=== PATIENT | male | born 1985 ===

== ENCOUNTER 2017-03-18 18:09 | Emergency (ER) | payer OTHER ==
--- NOTE | 2017-03-18 19:25 | ED PDOC ---
HPI: Abdomen Time Seen by Provider: 03/18/17 18:58 Chief Complaint (Nursing): Abdominal Pain Chief Complaint (Provider): Abdominal Pain History Per: Patient History/Exam Limitations: no limitations Onset/Duration Of Symptoms: Days (x1) Additional Complaint(s): Victor Hugo Roa, 31 year old male with a past medical history inclusive of Asthma , presents to the ED for right lower quadrant pain occurring with a sudden onset around 17:00 yesterday while at rest. The patient states the pain has waxed and waned since onset, but generally seems to be getting worse, radiating to his back. He reports seeing a small particle in his urine earlier today and experiences nausea, decreased appetite, and urinary frequency. He denies vomiting, diarrhea, constipation, hematuria, dysuria, or any testicular pain. PMD: Luis Naik MD Past Medical History Reviewed: Historical Data, Nursing Documentation, Vital Signs Vital Signs: Last Vital Signs Temp 97.9 F 03/18/17 18:21 Pulse 90 03/18/17 18:21 Resp 18 03/18/17 18:21 BP 160/90 H 03/18/17 18:21 Pulse Ox 99 03/18/17 19:33 - Medical History PMH: Asthma - Surgical History Surgical History: No Surg Hx - Family History Family History: States: Hypertension - Social History Current smoker - smoking cessation education provided: No Ex-Smoker (has not smoked in the last 12 months): No Alcohol: None - Home Medications Home Medications: Ambulatory Orders Medication Instructions Recorded Ibuprofen [Motrin Tab] 600 mg PO Q8 PRN #60 tab 03/18/17 traMADol [Ultram] 50 mg PO TID PRN #15 tab 03/18/17 - Allergies Allergies/Adverse Reactions: Allergies Allergy/AdvReac Type Severity Reaction Status Date / Time azithromycin Allergy RASH Verified 03/18/17 18:21 Review of Systems ROS Statement: Except As Marked, All Systems Reviewed And Found Negative Constitutional: Positive for: Other (decreased appetite ) Gastrointestinal: Positive for: Nausea, Abdominal Pain (right lower quadrant pain radiating to back ). Negative for: Vomiting, Diarrhea, Constipation Genitourinary Male: Positive for: Frequency. Negative for: Dysuria, Hematuria, Other (no testicular pain) Musculoskeletal: Positive for: Back Pain Physical Exam - Reviewed Nursing Documentation Reviewed: Yes Vital Signs Reviewed: Yes - Physical Exam Appears: Positive for: Non-toxic, In Acute Distress (in moderate painful distress) Head Exam: Positive for: ATRAUMATIC, NORMAL INSPECTION, NORMOCEPHALIC Skin: Positive for: Normal Color, Warm, Dry Eye Exam: Positive for: EOMI, Normal appearance, PERRL ENT: Positive for: Normal ENT Inspection Neck: Positive for: Normal, Painless ROM, Supple Cardiovascular/Chest: Positive for: Regular Rate, Rhythm. Negative for: Murmur Respiratory: Positive for: Normal Breath Sounds. Negative for: Wheezing, Respiratory Distress Gastrointestinal/Abdominal: Positive for: Soft, Tenderness (TTP right lower quadrant; Positive McBurney's Point Tenderness), Other (morbidly obese; negative psoas sign ). Negative for: Mass, Distended, Guarding, Rebound Back: Positive for: Normal Inspection. Negative for: L CVA Tenderness, R CVA Tenderness Extremity: Positive for: Normal ROM. Negative for: Deformity, Swelling Lymphatic: Negative for: Adenopathy Neurologic/Psych: Positive for: Alert, Oriented. Negative for: Motor/Sensory Deficits - Laboratory Results Result Diagrams: 03/18/17 19:30 03/18/17 19:30 - ECG O2 Sat by Pulse Oximetry: 99 (RA) Pulse Ox Interpretation: Normal Medical Decision Making Medical Decision Making: Impression: Right lower quadrant pain Differential diagnosis includes but is not limited to: Appendicitis, Renal polyps, herna, muscle strain Plan: * CT Abd & Pelvis IV Contrast Only Stat * IV Insertion (Saline Lock) Stat * Morphine 4 mg IVP Stat * Sodium Chloride 0.9% 1,000 ml IV 1,000 mls/hr * Zofran Inj 8 mg IV Stat Accession No. 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 no. Patient Name: VICTOR HUGO ROA Pt. Address: [address] [place] [address]. Rec #: [id number] [place] [address]: Osmar SNIDER, Abigail Fernandez Pt Order Location: [facility] : 1985 Male Age: 31 Order #: [id number] Reason for exam: RLQ pain and RIGHT flank pain appy v stone CT Scan ABD PELVIS IV CONTRAST ONLY Exam Date: 03/18/17 This imaging exam was performed at [facility] EXAM: CT Abdomen and Pelvis With Intravenous Contrast CLINICAL HISTORY: 31 years old, male; Pain; Abdominal pain; Localized; Right lower quadrant (rlq); Prior surgery; Surgery date: 6+ months; Surgery type: Vasectomy; Additional info: Rlq pain and right flank pain appy v stone TECHNIQUE: Axial computed tomography images of the abdomen and pelvis with intravenous contrast. This CT exam was performed using one or more of the following dose reduction techniques: automated exposure control, adjustment of the mA and/or kV according to patient size, and/or use of iterative reconstruction technique. Coronal and sagittal reformatted images were created and reviewed. CONTRAST: 100 mL of [id number] administered intravenously. EXAM DATE/TIME: 03/18/2017 7:06 PM COMPARISON: There are no prior studies for comparison. FINDINGS: Lower thorax: Heart size is normal. Lung bases are clear ABDOMEN: Liver: There is fatty infiltration of the liver. Gallbladder and bile ducts: unremarkable Pancreas: Pancreas is mildly atrophic. Spleen: unremarkable Adrenals: unremarkable Kidneys and ureters: There is a low attenuation right renal lesion too small to characterize.Kidneys and ureters are otherwise unremarkable. Stomach and bowel: Stomach is partially distended. Rotation is normal. There is no obstruction. Terminal ileum is unremarkable. Appendix is unremarkable. Colon is incompletely distended which limits evaluation. Appendix: See above. PELVIS: Bladder: unremarkable Reproductive: Seminal vesicles and prostate are unremarkable. ABDOMEN and PELVIS: Intraperitoneal space: There is no free air or free fluid. Bones/joints: There are no acute osseous abnormalities. There is sclerosis at the left sacroiliac joint. Soft tissues: There is a small fat containing umbilical hernia. Vasculature: Vascular structures are unremarkable. Lymph nodes: There is no pathologic adenopathy. IMPRESSION: No renal or ureteral stones or hydronephrosis; no CT findings of appendicitis Additional findings as described above. Dictated By: Camryn Ngo MD, MD Dictated Date/Time: 03/18/172210 Signed By: Camryn Ngo MD Date Signed: 2210 Transcribed By: DESIRE Transcribe Date/Time : 03/18/172210 BETH/HELEN Scribe Attestation: Documented by Susanna Rapp, acting as a scribe for Abigail Prasad MD. Provider Scribe Attestation: All medical record entries made by the Scribe were at my direction and personally dictated by me. I have reviewed the chart and agree that the record accurately reflects my personal performance of the history, physical exam, medical decision making, and the department course for this patient. I have also personally directed, reviewed, and agree with the discharge instructions and disposition. Disposition - Clinical Impression Clinical Impression: Abdominal pain Counseled Patient/Family Regarding: Studies Performed, Diagnosis, Need For Followup, Rx Given - Disposition Referrals: Luis Naik MD [Non-Staff] - (PLEASE FOLLOW UP WITH DR NAIK IN 2-3 DAYS TO SEE HOW YOU ARE DOING) Disposition: Routine/Home Disposition Time: 22:00 Condition: STABLE Prescriptions: Ibuprofen [Motrin Tab] 600 mg PO Q8 PRN #60 tab PRN Reason: Pain, Moderate (4-7) traMADol [Ultram] 50 mg PO TID PRN #15 tab PRN Reason: SEVERE PAIN ONLY Instructions: Acute Abdominal Pain (ED), Groin Strain (ED), Muscle Strain (ED) Forms: [facility] ED School/Work Excuse
[2017-03-18 19:55] LABS: BASO % 0.3 % (0.0-2.0); EOS # 0.1 K/uL (0.0-0.7); EOS % 0.8 % (0.0-4.0); HEMOGLOBIN 14.2 g/dL (12.0-18.0); MEAN CELL VOLUME 86.7 fl (80.0-94.0); MEAN CORPUSCULAR HEMOGLOBIN 28.5 pg (27.0-31.0); MEAN CORPUSCULAR HGB CONC 32.9 g/dL (33.0-37.0); MEAN PLATELET VOLUME 9.9 fl (7.2-11.7); MONO # 0.8 K/uL (0.0-0.8); MONO % 6.2 % (0.0-10.0); NEUT # 10.3 K/uL (1.8-7.0); NEUT % 77.7 % (50.0-75.0); NRBC % 0.1 % (0.0-0.0); RBC 4.97 Mil/uL (4.40-5.90); RED CELL DISTRIBUTION WIDTH 13.7 % (11.5-14.5); WHITE BLOOD COUNT 13.2 K/uL (4.8-10.8)
[2017-03-18] MEDS: Sodium Chloride 0.9% 1,000 ML IV STA (19:55)
[2017-03-18 20:05] LABS: ALB/GLOB RATIO 1.2 (1.0-2.1); ALBUMIN 4.6 g/dL (3.5-5.0); ALT/SGPT 55 U/L (21-72); AST/SGOT 35 U/L (17-59); BLOOD UREA NITROGEN 10 mg/dl (9-20); GFR AFRICAN-AMERICAN > 60; GFR NON-AFRICAN AMERICAN > 60
[2017-03-18 20:09] LABS: SQUAMOUS EPITHIAL 2 /hpf (0-5); URINE AMORPHOUS SEDIMENT RARE /ul (<OCC); URINE BILIRUBIN NEGATIVE (NEGATIVE); URINE BLOOD SMALL (NEGATIVE); URINE CLARITY CLEAR (Clear); URINE COLOR YELLOW (YELLOW); URINE GLUCOSE (UA) NEG (Normal); URINE LEUKOCYTE ESTERASE NEG Leu/uL (Negative); URINE NITRATE NEGATIVE (NEGATIVE); URINE PROTEIN NEGATIVE (NEGATIVE); URINE UROBILINOGEN 0.2-1.0 mg/dL (0.2-1.0)
[2017-03-18 20:30] LABS: INR 1.1 (0.9-1.2); PARTIAL THROMBOPLASTIN TIME 40.1 Seconds (25.6-37.1); PROTHROMBIN TIME 11.9 Seconds (9.8-13.1)
[2017-03-18] MEDS ORDERED: Iohexol 300 100 ML IJ ONE (20:57)
[2017-03-18] MEDS ORDERED: Sodium Chloride 0.9% 50 ML IV ONE (20:57)
--- NOTE | 2017-03-18 22:11 | CT ---
EXAM: CT Abdomen and Pelvis With Intravenous Contrast CLINICAL HISTORY: 31 years old, male; Pain; Abdominal pain; Localized; Right lower quadrant (rlq); Prior surgery; Surgery date: 6+ months; Surgery type: Vasectomy; Additional info: Rlq pain and right flank pain appy v stone TECHNIQUE: Axial computed tomography images of the abdomen and pelvis with intravenous contrast. This CT exam was performed using one or more of the following dose reduction techniques: automated exposure control, adjustment of the mA and/or kV according to patient size, and/or use of iterative reconstruction technique. Coronal and sagittal reformatted images were created and reviewed. CONTRAST: 100 mL of [id number] administered intravenously. EXAM DATE/TIME: 03/18/2017 7:06 PM COMPARISON: There are no prior studies for comparison. FINDINGS: Lower thorax: Heart size is normal. Lung bases are clear ABDOMEN: Liver: There is fatty infiltration of the liver. Gallbladder and bile ducts: unremarkable Pancreas: Pancreas is mildly atrophic. Spleen: unremarkable Adrenals: unremarkable Kidneys and ureters: There is a low attenuation right renal lesion too small to characterize.Kidneys and ureters are otherwise unremarkable. Stomach and bowel: Stomach is partially distended. Rotation is normal. There is no obstruction. Terminal ileum is unremarkable. Appendix is unremarkable. Colon is incompletely distended which limits evaluation. Appendix: See above. PELVIS: Bladder: unremarkable Reproductive: Seminal vesicles and prostate are unremarkable. ABDOMEN and PELVIS: Intraperitoneal space: There is no free air or free fluid. Bones/joints: There are no acute osseous abnormalities. There is sclerosis at the left sacroiliac joint. Soft tissues: There is a small fat containing umbilical hernia. Vasculature: Vascular structures are unremarkable. Lymph nodes: There is no pathologic adenopathy. IMPRESSION: No renal or ureteral stones or hydronephrosis; no CT findings of appendicitis Additional findings as described above.
[2017-03-18 23:02] VITALS: BP 155/101; PULSE 84; RESP 16; TEMP 98
[2017-03-18 23:22] VITALS: O2SAT 99
== END 2017-03-18 23:05 | disposition home or self-care (01) ==
LOC: H.ER 18:09
DX: R10.31 Right lower quadrant pain (principal); J45.909 Unspecified asthma, uncomplicated

== ENCOUNTER 2018-03-11 16:22 | Emergency (ER) | payer OTHER ==
--- NOTE | 2018-03-11 17:14 | ED PDOC ---
Lower Extremity Pain/Injury Time Seen by Provider: 03/11/18 16:41 Chief Complaint (Nursing): Lower Extremity Problem/Injury Chief Complaint (Provider): Left Ankle Injury History Per: Patient History/Exam Limitations: no limitations Onset/Duration Of Symptoms: Mins (prior to arrival) Current Symptoms Are (Timing): Still Present Additional Complaint(s): 32 year old male presents to the ED s/p tripping on an uneven sidewalk and sustaining an abrasion to his inner left ankle prior to arrival. Patient states he was playing with his daughter, and he tripped with his right ankle, but to compensate, he ended up twisting his left ankle. He reports not taking any medications prior to arrival. PMD: Luis Toth Past Medical History Reviewed: Historical Data, Nursing Documentation, Vital Signs Vital Signs: Last Vital Signs Temp 97.8 F 03/11/18 16:39 Pulse 96 H 03/11/18 16:39 Resp 16 03/11/18 16:39 BP 133/76 03/11/18 16:39 Pulse Ox 98 03/11/18 16:39 - Medical History PMH: Asthma - Surgical History Other surgeries: vasectomy - Family History Family History: States: Hypertension - Social History Current smoker - smoking cessation education provided: No Alcohol: Social Drugs: Other - Home Medications Home Medications: Ambulatory Orders Medication Instructions Recorded Ibuprofen [Motrin Tab] 600 mg PO Q8 PRN #60 tab 03/18/17 traMADol [Ultram] 50 mg PO TID PRN #15 tab 03/18/17 Ibuprofen [Motrin Tab] 600 mg PO Q8 PRN #30 tab 03/11/18 traMADol [Ultram] 50 mg PO TID PRN #15 tab 03/11/18 - Allergies Allergies/Adverse Reactions: Allergies Allergy/AdvReac Type Severity Reaction Status Date / Time erythromycin base Allergy RASH Verified 03/11/18 16:39 Review of Systems ROS Statement: Except As Marked, All Systems Reviewed And Found Negative Musculoskeletal: Positive for: Foot Pain (left ankle, with abrasion on inner ankle) Physical Exam - Reviewed Nursing Documentation Reviewed: Yes Vital Signs Reviewed: Yes - Physical Exam Appears: Positive for: No Acute Distress Head Exam: Positive for: ATRAUMATIC, NORMOCEPHALIC Skin: Positive for: Normal Color, Warm, Dry Neck: Positive for: Normal Cardiovascular/Chest: Negative for: Bradycardia, Tachycardia Respiratory: Negative for: Accessory Muscle Use, Respiratory Distress Pulses-Dorsalis Pedis (L): 2+ Pulses-Dorsalis Pedis (R): 2+ Extremity: Positive for: Tenderness (to left medial malleolus with abrasion), Swelling (to left ankle). Negative for: Normal ROM (Decreased ROM however pt able to dorsi flex and plantarflex ), Deformity (no gross bony deformity) Neurologic/Psych: Positive for: Alert, Oriented (x3). Negative for: Motor/ Sensory Deficits - ECG O2 Sat by Pulse Oximetry: 98 (RA) Pulse Ox Interpretation: Normal Medical Decision Making Medical Decision Making: Initial Impression: left ankle pain Time: 16:44 Initial Plan: --Ultram 50 mg PO --Ice pack --Left ankle XR --Left foot XR 17:33 Ankle XR Findings: Tibiotalar separation clearly identified on this radiograph. There is separation of the tibia-fibular joint space. There is widening of the medial and lateral clear spaces. Soft tissue swelling in the ankle. Impression: Disruption of the ankle syndesmotic joint with widening of the medial and lateral clear spaces. 17:33 Foot XR FINDINGS: BONES: Normal. No fracture. JOINTS: Normal. SOFT TISSUES: Normal. OTHER FINDINGS: None. IMPRESSION: No fracture. Podiatry was consulted and a resident came into the ED to evaluate pt. Tibia Fibula XR was recommended of left leg and also XRs of right foot and ankle. 1850 - Podiatry would like to do a closed reduction. Pt moved to room 19 and remainder of care by Dr. Prasad. Scribe Attestation Documented by Marleny Esquivel acting as a scribe for Dorcas Segura PA-C. Provider Attestation All medical record entries made by the Scribe were at my direction and personally dictated by me. I have reviewed the chart and agree that the record accurately reflects my personal performance of the history, physical exam, medical decision making, and the department course for this patient. I have also personally directed, reviewed, and agree with the discharge instructions and disposition. Disposition - Clinical Impression Clinical Impression: Ankle injury - Patient ED Disposition Is Patient to be Admitted: No - Disposition Disposition: Transfer of Care Disposition Time: 18:15 Condition: STABLE Instructions: Moderate Sedation in Adults (DC) Forms: [facility] (Setswana)
--- NOTE | 2018-03-11 17:46 | RAD ---
PROCEDURE: Left Foot Radiographs. HISTORY: pain after trip and fall COMPARISON: None. FINDINGS: BONES: Normal. No fracture. JOINTS: Normal. SOFT TISSUES: Normal. OTHER FINDINGS: None. IMPRESSION: No fracture.
--- NOTE | 2018-03-11 17:51 | RAD ---
Left ankle History: Trip and fall. Comparison: None. Technique: Three views the left ankle. Findings: Tibiotalar separation clearly identified on this radiograph. There is separation of the tibia-fibular joint space. There is widening of the medial and lateral clear spaces. Soft tissue swelling in the ankle. Impression: Disruption of the ankle syndesmotic joint with widening of the medial and lateral clear spaces. Discussed with JOSSELYN Segura at approximately 5:48 p.m. on 03/11/2018.
[2018-03-11] MEDS ORDERED: Propofol 10 mg/ml Inj (20 ML) IV ONE (18:32)
[2018-03-11] MEDS ORDERED: Propofol 10 mg/ml 1,000 MG/100 ML VIAL ONE (18:34)
[2018-03-11] MEDS ORDERED: Morphine 4 MG/ML VIAL ONE (19:11)
--- NOTE | 2018-03-11 20:18 | CP.PCM.CON ---
History of Present Illness - History of Present Illness History of Present Illness: Podiatry consult note for attending, Dr. Lee 32 y/o male with PMHx of Asthma presented to the ED due to complaints of left ankle pain. Patient states he was playing with his daughter on the pavement when he twisted his left ankle. Patient states he heard a "pop". Patient reports it occurred 2 hours prior to his ED arrival. Patient complains of pain, which is worsened with ambulation and movement. Patient denies numbness or tingling. Patient also reports some pain to the right foot. Patient denies F/V/N /SOB/chills. PMHx: Asthma PSHx: Vasectomy Allergies: Erythromycin, peaches, strawberries, grass, pollen Review of Systems - Review of Systems All systems: reviewed and no additional remarkable complaints except Review of Systems: As per HPI Past Patient History - Past Social History Alcohol: Social Drugs: Other - PULMONARY Hx Asthma: Yes - PSYCHIATRIC Hx Substance Use: Yes - SURGICAL HISTORY Hx Surgeries: Yes Other/Comment: vasectomy - ANESTHESIA Hx Anesthesia: Yes Hx Anesthesia Reactions: No Meds Allergies/Adverse Reactions: Allergies Allergy/AdvReac Type Severity Reaction Status Date / Time erythromycin base Allergy RASH Verified 03/11/18 16:39 Physical Exam - Head Exam Head Exam: ATRAUMATIC, NORMOCEPHALIC - Extremities Exam Additional comments: Bilateral Lower Extremity Exam VASC: DP and PT 2/4 bilaterally, CFT less than 3 seconds X 10, TG warm to cool proximal to distal, non-pitting edema noted to the left lateral ankle NEURO: Epicritic and Protective sensations intact, patient able to wiggle toes DERM: Left- swelling with minimal ecchymosis noted to the left ankle, no open wounds, no clinical signs of infection MSK: Left- patient unable to move the left ankle due to pain, patient able to wiggle toes, severe pain on palpation to the medial ankle, minimal pain on palpation to the lateral ankle Right- minimal pain on palpation to the medial mallelous - Neurological Exam Neurological exam: Alert, Oriented x3 - Psychiatric Exam Psychiatric exam: Normal Affect, Normal Mood Results - Vital Signs Recent Vital Signs: Last Vital Signs Temp 97.8 F 03/11/18 16:39 Pulse 108 H 03/11/18 19:06 Resp 15 07/04/18 19:06 BP 128/97 H 03/11/18 19:06 Pulse Ox 97 03/11/18 19:06 Assessment & Plan - Assessment and Plan (Free Text) Assessment: 32 y/o male with PMHx of left foot and ankle trauma presented to the ED Plan: Patient seen and evaluated in the ED Patient plan discussed with attending, Dr. Lee Foot X-rays: Tibiotalar separation noted Ankle X-rays: disruption of the syndesmosis, widening of the medial and lateral clear spaces, tibiotalar separation clearly noted, Tibial-Fibular X-rays: Pending read Patient explained the close reduction procedure to be performed in the ED, risks and benefits were discussed Patient and spouse agreed to have the close reduction Discussed the consent with patient, signed by spouse, and witness by nurse Patient received conscious sedation in the ED Close reduction was performed of the left ankle, and post-operative films were taken- mild reduction noted Final Post-Op X-rays- Pending read As per Dr. Lee, patient was to be admitted for a follow-up by him on floor and possible surgery within the week Patient would like to sign out AMA- thoroughly explained to patient the consequences of signing out AMA Patient will be prescribed pain medication Thank you for the podiatry consult
[2018-03-11 21:18] VITALS: BP 134/77; PULSE 94; RESP 18; TEMP 98.4; O2SAT 97
--- NOTE | 2018-03-12 08:44 | RAD ---
PROCEDURE: Left Ankle Radiographs. HISTORY: s/p close reduction left ankle COMPARISON: 03/11/2018 at 5:15 p.m. FINDINGS: BONES: Previously identified widened ankle mortise is status post close reduction. Previously evident fracture of the lateral/posterior distal tibia not evident on the current examination due to overlying fiberglass cast material. The ankle mortise is persistently widened. The talar dome is smooth. JOINTS: As above SOFT TISSUES: Normal. OTHER FINDINGS: None. IMPRESSION: Widened ankle mortise. Previously identified fracture posterior/ lateral distal tibia not evident on current examination.
--- NOTE | 2018-03-12 09:02 | RAD ---
PROCEDURE: Radiographs of the left tibia and fibula. HISTORY: ankle dislocation COMPARISON: None available. TECHNIQUE: Frontal and lateral views obtained. FINDINGS: BONES: There is apparent fracture of the posterior malleolus of the tibia with small minimally displaced osseous fragments. There is probable fracture of the medial aspect of the distal fibula at the level of the plafond. There is widening of the ankle mortise. There is no additional fracture identified. The talar dome is smooth. JOINT SPACES: As above OTHER FINDINGS: None. IMPRESSION: Fracture distal fibula and likely posterior malleolus. Widened ankle mortise.
== END 2018-03-11 21:20 | disposition left against medical advice (07) ==
LOC: H.ER 16:22
DX: S93.06XA Dislocation of unspecified ankle joint, initial encounter (principal); J45.909 Unspecified asthma, uncomplicated; W01.0XXA Fall on same level from slipping, tripping and stumbling without subsequent striking against object, initial encounter; Z88.1 Allergy status to other antibiotic agents
CPT/HCPCS: 27840; 73590; 73610; 73630; 94770; 96374; 99285; J1885; J2704